=== PATIENT | female | born 1990 | race Caucasian/White ===

== ENCOUNTER 2016-12-22 13:58 | Emergency (ER) | payer BC, OTHER ==
[~2016-12-22] VITALS: Wt 110.0 kg
--- NOTE | 2016-12-22 15:00 | ERD ---
ER Documentation Chief Complaint Date/Time DATE: 12/22/16 TIME: 14:59 Chief Complaint PELVIC PAIN X 3 DAYS POSSIBLE OVARIAN CYST HPI This is 26-year-old female who presents to the emergency department today for pelvic pain and vaginal bleeding. Patient states she has a history of PCO as . patient states she is currently on her menstrual cycle but it is heavier than usual. Patient states she feels pressure and also has some pain with urination and sitting and walking. She states she has had what she thinks is "an abscess before that ruptured" she has had some white discharge. States she is taking Aleve today with no improvement. States she is less concerned about pain and more concerned that there is something also going on. She has felt chilled but denies any fevers. Denies any nausea or vomiting. ROS All systems reviewed and are negative except as per history of present illness. Medications Home Meds Active Scripts Cephalexin* (Keflex*) 500 Mg Capsule, 500 MG PO QID for 7 Days, CAP Prov:JOHN SOTELO PA-C 12/22/16 PMhx/Soc History of Surgery: Yes (tonsil, estachian tubes) Anesthesia Reaction: No Hx Neurological Disorder: No Hx Respiratory Disorders: No Hx Cardiac Disorders: No Hx Psychiatric Problems: No Hx Miscellaneous Medical Probl: No Hx Alcohol Use: Yes (socially) Hx [facility] Hx Tobacco Use: No Smoking Status: Never smoker Physical Exam Vitals Vital Signs Date Time Temp Pulse Resp B/P Pulse Ox O2 Delivery O2 Flow Rate FiO2 12/22/16 14:10 98.0 72 20 140/86 98 Physical Exam Const: Obese, no acute distress Head: Atraumatic Eyes: Normal Conjunctiva ENT: Normal External Ears, Nose and Mouth. Neck: Full range of motion..~ No meningismus. Resp: Clear to auscultation bilaterally Cardio: Regular rate and rhythm, no murmurs Abd: Soft, breath pubic tenderness non distended. Normal bowel sounds. No right lower quadrant pain. No left lower quadrant pain. Skin: No petechiae or rashes Neur: Awake and alert Psych: Normal Mood and Affect Result Diagram: 12/22/16 1521 12/22/16 1521 Results 24 hrs Laboratory Tests Test 12/22/16 15:07 12/22/16 15:21 Urine Bacteria FEW Urine Bilirubin NEGATIVE Urine Clarity BLOODY Urine Color RED Urine Glucose NEGATIVE% Urine Hemoglobin 3+ Urine Ketones NEGATIVE Urine Leukocyte Esterase 3+ Urine Microscopic RBC >200/HPF Urine Microscopic WBC 10-25/HPF Urine Nitrite NEGATIVE Urine Specific Trout 1.015 Urine Squamous Epithelial Cells MODERATE Urine Total Protein TRACE Urine Urobilinogen 0.2 E.U./dL Urine pH 5.0 Alanine Aminotransferase (ALT/SGPT) 41IU/L Albumin 4.3g/dl Albumin/Globulin Ratio 1.38 Alkaline Phosphatase 78IU/L Anion Gap 16 Aspartate Amino Transf (AST/SGOT) 18IU/L Basophils # 0.010^3/ul Basophils % 0.2% Blood Urea Nitrogen 13mg/dl Calcium Level 9.5mg/dl Carbon Dioxide Level 28mmol/L Chloride Level 100mmol/L Creatinine 0.67mg/dl Direct Bilirubin 0.00mg/dl Eosinophils # 0.210^3/ul Eosinophils % 2.3% Globulin 3.10g/dl Glucose Level 82mg/dl Hematocrit 39.5% Hemoglobin 12.8g/dl Indirect Bilirubin 0.3mg/dl Lymphocytes # 2.210^3/ul Lymphocytes % 24.5% Mean Corpuscular Hemoglobin 28.1pg Mean Corpuscular Hemoglobin Concent 32.4g/dl Mean Corpuscular Volume 86.6fl Mean Platelet Volume 9.3fl Monocytes # 0.510^3/ul Monocytes % 5.5% Neutrophils # 6.110^3/ul Neutrophils % 67.1% Nucleated Red Blood Cells # 0.010^3/ul Nucleated Red Blood Cells % 0.0/100WBC Platelet Count 80803^3/UL Potassium Level 4.0mmol/L Red Blood Count 4.5610^6/ul Red Cell Distribution Width 12.9% Sodium Level 140mmol/L Total Bilirubin 0.3mg/dl Total Protein 7.4g/dl White Blood Count 9.110^3/ul Current Medications Medications (Trade) Dose Ordered Sig/Wilman Route PRN Reason Start Time Stop Time Status Last Admin Dose Admin Acetaminophen/ Hydrocodone Bitart (Lockhart ()) 1 tab ONCE ONCE PO 12/22/16 15:30 12/22/16 15:31 DC 12/22/16 15:18 RUN DATE: 12/22/16 [facility] PAGE 1 RUN TIME: [id number] [place] [address] Pan Gomez M.D. [employer] WANDA#: [id number] Name: HILARIOANDREWRASHEEDA NICHOLS Age/Sex: 26/F Attend Dr: COCO WALTERS MD Acct: [id number] MR# : [id number] : 1990 Location: [facility] Admit: 12/22/16 Specimen: [id number] Status: Complete Brinda: 12/22/16 Rcvd: 12/22 Source: VAGINAL Sp Descrip: Procedure Result Microbiology WET MOUNT Final WHITE BLOOD CELLS 2+ RED BLOOD CELLS 4+ BACTERIA 3+ EPITHELIAL CELLS 1+ MYCELIA NONE SEEN YEAST NONE SEEN HYPHAE NONE SEEN CLUE CELLS NO CLUE CELLS SEEN MOTILE TRICHOMONAS NO MOTILE TRICHOMONAS SEEN ................................................................................ ............ Flags: Critical Hi = *H Critical Lo = *L Microbiology Abnormal = * Abnormal Hi = H Abnormal Lo = L Blood Bank Abnormal = * Susceptability Flags: S = Sensitive R = Resistant I = Intermediate END OF REPORT DIAGNOSTIC IMAGING REPORT Patient: RASHEEDA DIAS : 1990 Age: 26 Sex: F MR #: [id number] DOS: 12/22/16 0000 Ordering MD: JOHN SOTELO PA-C Location: [facility] Room/Bed: PROCEDURE: US Pelvis. CLINICAL INDICATION: Pelvic pain TECHNIQUE: Multiple sonographic images of the pelvis were obtained utilizing a transabdominal and endovaginal technique. The images were reviewed on a PACS workstation. COMPARISON: None. FINDINGS: The uterus is visualized and measures 7.8 x 3.9 x 6.2 cm. Suggestion of fundal fibroid measuring 2.1 cm in the fundus. The endometrial echo complex is normal and measures 4 mm. There is no evidence for free fluid. The right ovary has a normal echotexture and measures 3.0 x 2.0 x 2.9 cm . The left ovary has a normal echotexture and measures 2.7 x 1.5 x 2.0 cm. Sub centimeter follicles are present within the left ovary. No adnexal masses are noted. IMPRESSION: 2.1 cm mass within the fundus consistent with a fibroid. Otherwise unremarkable exam RPTAT: RICNH. .Lelo Freitas MD, Date Time Electronically viewed and signed by .Lelo Freitas MD, on 12/22/2016 17:50 .M/ CC: JOHN SOTELO PA-C Procedures/MDM This 26-year-old female with a history of PCOS presents today with vaginal bleeding and pelvic pain for the past 3 days. Patient states she is currently on her menstrual cycle. I did obtain a urine test. Urine test is negative. Laboratory work and a non-OB ultrasound was also obtained as well as a UA Laboratory work shows no elevated white blood cell count. She is not anemic. Platelets are within normal limits. Electrolytes are within normal limits. Liver functions within normal limits. UA shows 3+ leukocyte Estrace and negative nitrates. There are 10-25 microscopic white blood cells. Will treat the patient for urinary tract infection. Ultrasound shows a 2.1 similar mass within the fundus consistent with a fibroid. There are subcentimeter follicles present within the left ovary. There no adnexal masses. There is no evidence of free fluid. I also did a pelvic exam on the patient did have some pain however I have low suspicion for PID at this time. I did send the patient's urine for gonorrhea and chlamydia. I also did a wet mount. Wet mount is negative for yeast, trichomonads or clue cells. Patient was given Lockhart here in the emergency department and pain improved. Patient declined any pain medication for home and she wants to drive. She states that she can take taking her Aleve. Patient's pelvic pain at this time they be related to fibroid versus a urinary tract infection. There is no evidence for acute surgical abdomen at this time. Most ectopic , tubo-ovarian abscess or ovarian torsion. Patient is walking around the emergency department in no acute distress. Patient is new to the area and recently moved here from [place] however she does have an [facility] [employer] HMO and states that she will contact with her insurance to see who she can see as well as an [employer]CHNICIAN. She was unable to get into anybody today is no B was taking new patients or taking people in today for appointment. Given her a list of [employer] TECHNICIAN in the area as well. At this time the patient is stable for discharge and outpatient management. Patient should follow up with their PCP in the next 1-2 days. They may return to the emergency department sooner for any persistent or worsening of symptoms. Patient understood and agreed with the plan. Discussed the patient with Dr. Walters and he is in agreement with the plan. Departure Diagnosis: Primary Impression: Pelvic pain Additional Impression: UTI (urinary tract infection) Urinary tract infection type: site unspecified Hematuria presence: without hematuria Qualified Code: N39.0 - Urinary tract infection without hematuria, site unspecified Condition: Fair JOHN SOTELO PA-C Dec 22, 2016 15:00
[2016-12-22 15:30] LABS: ADD SCAN DIFF NO
[2016-12-22] MEDS ORDERED: HYDROCODONE/APAP (10/325) TAB PO ONE (15:30)
[2016-12-22 15:38] LABS: ADD UMIC YES; URINE BILIRUBIN (Dip) NEGATIVE (NEGATIVE); URINE BLOOD (Dip) 3+ (NEGATIVE); URINE GLUCOSE (Dip) NEGATIVE (NEGATIVE); URINE KETONES (Dip) NEGATIVE (NEGATIVE); URINE LEUKOCYTE ESTERASE (Dip) 3+ (NEGATIVE); URINE NITRITE (Dip) NEGATIVE (NEGATIVE); URINE TOTAL PROTEIN (Dip) TRACE (NEGATIVE); URINE UROBILINOGEN (Dip) 0.2 E.U./dL (0.1-1.0)
[2016-12-22 15:41] LABS: ALBUMIN 4.3 g/dl (3.3-4.9)
[2016-12-22 15:43] LABS: CREATININE 0.67 mg/dl (0.44-1.00)
[2016-12-22 15:44] LABS: ALBUMIN/GLOBULIN RATIO 1.38; BILIRUBIN,INDIRECT 0.3 mg/dl (0-1.1); BILIRUBIN,TOTAL 0.3 mg/dl (0.2-1.3); TOTAL PROTEIN 7.4 g/dl (6.1-8.1)
[2016-12-22 15:45] LABS: CALCIUM 9.5 mg/dl (8.4-10.2)
[2016-12-22 15:47] LABS: URINE COLOR RED (YELLOW)
[2016-12-22 15:50] LABS: BACTERIA,URINE FEW; SQUAMOUS EPITHELIAL CELL,UR MODERATE; URINE RBCS >200 /HPF (0)
[2016-12-22 15:50] LABS: BASOPHILS % 0.2 % (0.0-2.0); EOSINOPHILS # 0.2 10^3/ul (0.0-0.5); EOSINOPHILS % 2.3 % (0.0-7.0); HEMATOCRIT 39.5 % (37.0-47.0); HEMOGLOBIN 12.8 g/dl (12.0-16.0); LYMPHOCYTES # 2.2 10^3/ul (0.8-2.9); LYMPHOCYTES % 24.5 % (15.0-51.0); MEAN CORPUSCULAR HEMOGLOBIN 28.1 pg (29.0-33.0); MEAN CORPUSCULAR HGB CONC 32.4 g/dl (32.0-37.0); MEAN CORPUSCULAR VOLUME 86.6 fl (82.0-101.0); MEAN PLATELET VOLUME 9.3 fl (7.4-10.4); MONOCYTE # 0.5 10^3/ul (0.3-0.9); MONOCYTES % 5.5 % (0.0-11.0); NEUTROPHIL # 6.1 10^3/ul (1.6-7.5); NEUTROPHILS % 67.1 % (39.0-77.0); PLATELET COUNT 232 10^3/UL (140-415); RED BLOOD COUNT 4.56 10^6/ul (4.20-5.40); RED CELL DISTRIBUTION WIDTH 12.9 % (11.5-14.5); WHITE BLOOD COUNT 9.1 10^3/ul (4.8-10.8)
--- NOTE | 2016-12-22 17:50 | RADRPT ---
PROCEDURE: US Pelvis. CLINICAL INDICATION: Pelvic pain TECHNIQUE: Multiple sonographic images of the pelvis were obtained utilizing a transabdominal and endovaginal technique. The images were reviewed on a PACS workstation. COMPARISON: None. FINDINGS: The uterus is visualized and measures 7.8 x 3.9 x 6.2 cm. Suggestion of fundal fibroid measuring 2.1 cm in the fundus. The endometrial echo complex is normal and measures 4 mm. There is no evidence for free fluid. The right ovary has a normal echotexture and measures 3.0 x 2.0 x 2.9 cm . The left ovary has a nor mal echotexture and measures 2.7 x 1.5 x 2.0 cm. Sub centimeter follicles are present within the le ft ovary. No adnexal masses are noted. IMPRESSION: 2.1 cm mass within the fundus consistent with a fibroid. Otherwise unremarkable exam RPTAT: RICNH. .Lelo Freitas MD, Date Time Electronically viewed and signed by .Lelo Freitas MD, on 12/22/2016 17:50 .M/
[2016-12-22] MEDS ORDERED: CEPH-443 PO (17:59)
[2016-12-22 18:47] VITALS: BP 138/84; PULSE 83; RESP 18; TEMP 98
== END 2016-12-22 18:48 | disposition home or self-care (01) ==
LOC: FTE 13:58
DX: R10.2 Pelvic and perineal pain (principal); N39.0 Urinary tract infection, site not specified
CPT/HCPCS: 36415; 76830; 76856; 80053; 81001; 81003; 85025; 87210; 87591